=== PATIENT | female | born 1955 | race Caucasian/White ===

== ENCOUNTER → 2024-04-25 | Outpatient (CLI) | payer MEDICARE, SELFPAY ==
[2024-04-30 13:07] LABS: HPV APTIMA, High Risk Negative (Negative)
== END | disposition home or self-care (01) ==
LOC: LABSPEC 10:01
PROVIDERS: Referring Provider Nurse Practitioner Women's Health; Visit Provider Nurse Practitioner Women's Health
DX: Z12.4 Encounter for screening for malignant neoplasm of cervix (principal)
CPT/HCPCS: 87624; 88175; G0145

== ENCOUNTER → 2024-04-29 | Outpatient (CLI) | payer MEDICARE, SELFPAY ==
--- NOTE | 2024-04-29 12:43 | US_ITS ---
EXAM: US PELVIS TRANSABDOMINAL AND TRANSVAGINAL, COMPLETE CLINICAL INDICATION: postmenopausal bleeding TECHNIQUE: Transabdominal and transvaginal pelvic ultrasound was performed with grayscale and color Doppler imaging. Transvaginal imaging was used for better evaluation of the endometrium and adnexa. COMPARISON: No relevant prior studies available. FINDINGS: UTERUS/CERVIX: Intramural leiomyoma measuring 1.5 cm. Uterus is retroverted. Small amount of fluid in the endometrial cavity. The uterus measures 6.3 x 3.6 x 3.0 cm. The endometrial stripe measures 0.4 cm in thickness. RIGHT OVARY: Unremarkable. Blood flow is present in the right ovary. The RIGHT ovary measures 3.0 x 1.8 x 1.9 cm. LEFT OVARY: Left ovary not visualized. FREE FLUID: None. BLADDER: Unremarkable as visualized. Wall is normal thickness for degree of distention. US/Pelvic w/ Transvaginal IMPRESSION: 1. Intramural leiomyoma measuring 1.5 cm. 2. Small amount of fluid in the endometrial cavity. Electronically Signed: Coleman Lovelace MD at 1:55 EDT ,
== END | disposition home or self-care (01) ==
PROVIDERS: Referring Provider Nurse Practitioner Women's Health; Visit Provider Nurse Practitioner Women's Health
DX: N95.0 Postmenopausal bleeding (principal)
CPT/HCPCS: 76830; 76856

== ENCOUNTER → 2024-08-06 | Outpatient (CLI) | payer MEDICARE, SELFPAY ==
--- NOTE | 2024-08-06 09:13 | US_ITS ---
PROCEDURE: Pelvic ultrasound REASON FOR EXAM: Uterine prolapse TECHNIQUE: Transabdominal and transvaginal pelvic ultrasound COMPARISON: Reviewed. FINDINGS: Retroverted uterus measuring 5.8 x 3.6 x 2.7 cm. Leiomyomatous fibroid is noted measuring up to 1.5 cm. The bilateral ovaries are not visualized. No fluid in the cul-de-sac. The endometrium is unremarkable measuring up to 7 mm. Cervical calcification measuring up to 2 mm is nonspecific. Minimal fluid is seen within the endometrial canal. US/Pelvic w/ Transvaginal IMPRESSION: 2 mm cervical calcification. Limited exam with nonvisualization of the bilater al ovaries. Single uterine fibroid. No sonographic evidence of uterine prolapse. Reading Location: [id number]
== END | disposition home or self-care (01) ==
PROVIDERS: PCP Internal Medicine; Referring Provider Obstetrics & Gynecology; Visit Provider Obstetrics & Gynecology
DX: N81.3 Complete uterovaginal prolapse (principal); R93.89 Abnormal findings on diagnostic imaging of other specified body structures
CPT/HCPCS: 76830; 76856